=== PATIENT | male | born 1980 | race African-American/Black ===

== ENCOUNTER 2016-12-13 01:15 | Emergency (ER) | payer OTHER ==
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
[2016-12-13] MEDS ORDERED: 0.9% Sodium Chloride 1,000 ML IV ONE (01:23)
[2016-12-13] MEDS: HYDROmorphone 0.5 mg/0.5 mL iSecure Syringe IVPUSH PRN ×3 (01:33→02:15)
[2016-12-13] MEDS: Ondansetron 2 mg/mL 2 mL Inj IVPUSH PRN ×2 (01:33→02:16)
[2016-12-13 01:50] LABS: BASOPHILS % (AUTO) 0.2 % (0-3); EOSINOPHILS % (AUTO) 0.1 % (0-5); MONOCYTES % (AUTO) 6.9 % (4-12); Mean Corpuscular Hemoglobin 30.6 pg (27.0-35.0); NEUTROPHILS % (AUTO) 77.6 % (40-74); Platelet Count 318 bil/L (150-400)
[2016-12-13 01:59] LABS: INR 1.12 ratio
[2016-12-13 02:13] LABS: Lipase 32 U/L (13-60)
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
== END 2016-12-13 03:47 | disposition short-term general hospital (02) ==
LOC: SED 01:15
DX: S27.0XXA Traumatic pneumothorax, initial encounter (principal); S22.23XA Sternal manubrial dissociation, initial encounter for closed fracture; S02.411A LeFort I fracture, initial encounter for closed fracture; S27.321A Contusion of lung, unilateral, initial encounter; S02.82XA Fracture of other specified skull and facial bones, left side, initial encounter for closed fracture; S02.40CA Maxillary fracture, right side, initial encounter for closed fracture; S02.40DA Maxillary fracture, left side, initial encounter for closed fracture; V20.4XXA Motorcycle driver injured in collision with pedestrian or animal in traffic accident, initial encounter; Y92.410 Unspecified street and highway as the place of occurrence of the external cause; Y93.89 Activity, other specified; Y99.8 Other external cause status
CPT/HCPCS: 36415; 70450; 70486; 71010; 71260; 72125; 74177; 80053; 83690; 83735; 85014; 85018; 85025; 85610; 85730; 86850; 93005; 96374; 96375; 96376; 99291; G0390; G0480; J1170; J2405; J7030; Q9967